=== PATIENT | female | born 1980 | race Caucasian/White ===

== ENCOUNTER 2018-11-12 08:26 | Day surgery (SDC) | payer OTHER ==
[~2018-11-12] VITALS: Ht 154.9 cm; Wt 81.0 kg
[2018-11-12] VITALS (16 sets, daily range): BP systolic 91–111; BP diastolic 56–70; PULSE 16–78; RESP 16–20; Ht 154.9 cm; Wt 81.0 kg
[~2018-11-12 08:26] MED LIST: SEVOFLURANE 15 MIN ONE
[2018-11-12] MEDS ORDERED: LEVO75TA65 PO (09:15)
[2018-11-12] MEDS ORDERED: LACTATED RINGER'S 1,000 ML IV SCH (10:00)
--- NOTE | 2018-11-12 11:14 | PREAC ---
Date/Time of Note Date/Time of Note DATE: 11/12/18 TIME: 11:12 Anesthesia Eval and Record Evaluation Time Pre-Procedure Interview DATE: 11/12/18 TIME: 11:12 Age 38 Sex female NPO: 8 hrs Preoperative diagnosis 7 weeks demise Planned procedure suction D and C Past Medical History Past Medical History: Includes Endo: Hypothyroid : Other (, 7 weeks demise. ) Surgery & Anesthesia Issues No known issue (s/p gastric sleeve) Meds Anticoagulation: No Beta Reina within 24 hr: No Reason Beta Reina not given: Pt. not on B-Reina Reported Medications Levothyroxine Sodium* (Levoxyl*) 75 Mcg Tablet, 75 MCG PO BEFORE BREAKFAST, #30 TAB 11/12/18 Current Medications Lactated Ringer's 1,000 ml @ 25 mls/hr Q24H IV Last administered on 11/12/18at 10:48; Admin Dose 25 MLS/HR; Start 11/12/18 at 10:00 Meds reviewed: Yes Allergies Coded Allergies: No Known Allergy (Unverified , 11/12/18) Allergies Reviewed: Yes Labs/Studies Labs Reviewed: Reviewed by anesthesiologist Result Diagram: 11/12/18 1037 Laboratory Tests 11/12/18 10:37 test: N/A (7 weeks demise) Pre-procedure Exam Last vitals Vital Signs Date Temp Pulse Resp B/P (MAP) Pulse Ox O2 O2 Flow FiO2 Time Delivery Rate 11/12/18 98.7 16 16 91/57 (68) 100 Room Air 09:37 Airway: Adequate mouth opening, Adequate thyromental dist Mallampati: Mallampati II Teeth: Normal Lung: Normal Heart: Normal ASA Physical Status ASA physical status: 2 Emergency: None Planned Anesthetic General/MAC: ETT Planned Pain Management Parenteral pain med, Local by surgeon Pre-operative Attestations Prior to commencing anesthesia and surgery, the patient was re-evaluated, there was verification of: *The patient's identity *The results of appropriate recent lab work and preoperative vital signs *The above evaluation not changing prior to induction *Anesthetic plan, risk benefits, alternative and complications discussed with patient/family; questions answered; patient/family understands, accepts and wishes to proceed. PILO DING Nov 12, 2018 11:14
[2018-11-12] MEDS ORDERED: MIDAZOLAM 1 MG/ML 2 ML INJ ONE (11:24)
[2018-11-12] MEDS ORDERED: CEFAZOLIN 1 GM INJ ONE (11:31)
[2018-11-12] MEDS ORDERED: ONDANSETRON 4 MG INJ ONE (11:31)
[2018-11-12] MEDS ORDERED: DEXAMETHASONE 4 MG/ML 5 ML INJ ONE (11:31)
[2018-11-12] MEDS ORDERED: PROPOFOL 20 ML ONE (11:31)
[2018-11-12] MEDS ORDERED: LIDOCAINE 2% (SDV) 5 ML INJ ONE (11:31)
[2018-11-12] MEDS ORDERED: EPHEDrine 25 MG/5 ML SYG ONE (11:31)
[2018-11-12] MEDS ORDERED: FAMOTIDINE 20 MG INJ ONE (11:32)
[2018-11-12] MEDS ORDERED: FENTAnyl 50 MCG/ML VIAL ONE (11:35)
--- NOTE | 2018-11-12 11:49 | OPPN ---
Date/Time of Note Date/Time of Note DATE: 11/12/18 TIME: 11:47 Operative Report Preoperative Diagnosis Missed at 7 wks Postoperative Diagnosis same Operation/Procedure Performed D&C&Suction Surgeon see signature line admissions assistant none Anesthesia: general Estimated blood loss: 10 - 50 ml's Transfusion Required none Specimen Product of conception Grafts/Implants none Complications none KALINA ESPINAL M.D. Nov 12, 2018 11:49
[2018-11-12] MEDS ORDERED: HYDROmorphONE 1 MG/5 ML IV SYRINGE IV PRN ×2 (12:00)
[2018-11-12] MEDS ORDERED: ONDANSETRON 4 MG INJ IV PRN (12:00)
[2018-11-12] MEDS ORDERED: MEPERIDINE 25 MG INJ IV PRN (12:00)
[2018-11-12] MEDS ORDERED: EPHEDrine 25 MG/5 ML SYG IV PRN (12:00)
[2018-11-12] MEDS ORDERED: PROCHLORPERAZINE 10 MG INJ IV PRN (12:00)
[2018-11-12] MEDS ORDERED: DIPHENHYDRAMINE 50 MG INJ IV PRN (12:00)
[2018-11-12] MEDS ORDERED: FENTAnyl 50 MCG/ML VIAL IV PRN (12:00)
--- NOTE | 2018-11-12 12:00 | PAC ---
Date/Time of Note Date/Time of Note DATE: 11/12/18 TIME: 11:59 Post-Anesthesia Notes Post-Anesthesia Note Last documented vital signs Vital Signs Date Temp Pulse Resp B/P (MAP) Pulse Ox O2 O2 Flow FiO2 Time Delivery Rate 11/12/18 98.7 16 16 91/57 (68) 100 Room Air 09:37 Activity: WNL Respiratory function: WNL Cardiovascular function: WNL Mental status: Baseline Pain reasonably controlled: Yes Hydration appropriate: Yes Nausea/Vomiting absent: Yes Comments BP: 105/65 HR: 87 RR: 15 T: 97.9 SaO2: 100% AMY BLANCO MD Nov 12, 2018 12:00
[2018-11-12] MEDS: HYDROmorphONE 1 MG/5 ML IV SYRINGE IV PRN ×2 (12:46→12:57)
[2018-11-12] MEDS ORDERED: HYDROCODONE/APAP (5/325) TAB PO ONE (13:00)
--- NOTE | 2018-11-15 09:53 | OPR ---
DATE OF OPERATION: 11/12/2018 PREOPERATIVE DIAGNOSIS: Missed at 7 weeks. POSTOPERATIVE DIAGNOSIS: Missed at 7 weeks. OPERATION PERFORMED: Dilation and curettage and suction. ATTENDING SURGEON: Yanick Patel MD. TYPE OF ANESTHESIA: General. COMPLICATIONS: None. TECHNIQUE: The patient was taken to the operating room where general anesthesia was found to be adeq uate. The patient was placed in dorsal lithotomy position. After prep and drape, a weighted speculu m was placed inside the vaginal vault. Anterior lip of the cervix was grasped by single-tooth tenacu lum. Cervix was dilated by Weston dilators. Then, suction size 8 was inserted into the cavity and wa s suctioned. Sharp curettage of endometrial cavity was done. The patient tolerated the procedure we ll and was transferred to recovery room in stable condition. There was no complication regarding thi s surgery. Dictated By: YANICK BOYER/AMANDA Conf#: [id number] DID#: [id number]
== END 2018-11-12 13:40 | disposition home or self-care (01) ==
LOC: SDS 08:26
PROVIDERS: ATTEND Obstetrics & Gynecology
DX: O02.1 Missed abortion (principal)
CPT/HCPCS: 59820; 76801; 85025; 86850; 86900; 86901; 88305; J0690; J1100; J1170; J1200; J2175; J2250; J2405; J3010; Z7512; Z7610